=== PATIENT | male | born 1980 | race Caucasian/White ===

== ENCOUNTER 2017-04-04 09:25 | Day surgery (SDC) | payer OTHER ==
[~2017-04-04 09:25] MED LIST: Lactated Ringers 1,000 ML IV SCH; Sodium Chloride 0.9% 10 ML Syringe FLUSH PRN
[2017-04-04] MEDS ORDERED: Midazolam 1 MG/ML 2 ML SDV ONE ×2 (10:38→10:41)
[2017-04-04] MEDS ORDERED: fentaNYL 100 MCG/2 ML SDV ONE ×2 (10:38→10:41)
[2017-04-04] MEDS ORDERED: Propofol 200 MG/20 ML SDV ONE ×2 (10:38→10:41)
[2017-04-04] MEDS ORDERED: Lidocaine 2% 5 ML SDV ONE (10:41)
--- NOTE | 2017-04-04 11:11 | PCM.HPR ---
H & P Addendum review - H & P Addendum Review Date of Original H & P: 04/02/17 Date Reviewed: 04/04/17 Time Reviewed: 10:15 Patient was Examined: No Changes
--- NOTE | 2017-04-04 11:13 | PCM.OPNOTE ---
- General Post-Op/Procedure Note Date of Surgery/Procedure: 04/04/17 Operative Procedure(s): EGD with Bx. Coloscopy with polypectomy Findings: Loose LES Sig polyp Pre Op Diagnosis: GERD. Heme pos stool Post-Op Diagnosis: Same Anesthesia Technique: RUSSELL Primary Surgeon: Dean Thornton Anesthesia Provider: Josee Hancock Complications: None Condition: Good
--- NOTE | 2017-04-05 07:49 | OR ---
Date of Procedure: 04/04/2017 PREOPERATIVE DIAGNOSES: 1. Gastroesophageal reflux disease. 2. Heme-positive stool. POSTOPERATIVE DIAGNOSES: 1. Normal EGD with loose lower esophageal sphincter. 2. Sigmoid colon polyp. PROCEDURES: 1. EGD with biopsy 2. Colonoscopy with polypectomy. ANESTHESIA: IV sedation. PROCEDURE IN DETAIL: Patient was brought to the procedure room where IV sedation was administered. Oral bite block was placed and the upper endoscope advanced into the esophagus under direct vision without difficulty. Vocal cords were viewed and were normal. The scope was advanced to the 3rd portion of the duodenum. Duodenum and pylorus were normal. Antrum and body of the stomach were normal. Retroflexion reveals a normal-appearing fundus. Lower esophageal sphincter is loose and I can visualize into the distal esophagus for several cm. The squamocolumnar junction is ill-defined. I suspect there is chronic esophagitis, although I do not see any acute esophagitis, erosions, ulcerations, or other abnormalities. I did take up 4 random biopsies from the distal esophagus for pathology review. Air was removed from the stomach and the scope withdrawn through the remaining esophagus which appears normal. Patient tolerated this portion of the procedure well. Next, colonoscopy was performed. After digital rectal exam was done which was normal, colonoscope was inserted and advanced to the level of the cecum without difficulty. Cecal position was confirmed by identifying the appendiceal lumen and ileocecal valve. I was unable to visualize over a portion of the ileocecal fold. Upon withdrawing the scope, the ascending, transverse, and descending colon were normal in appearance. There was a 6 mm pedunculated polyp in the distal sigmoid colon at 17 cm from the anal verge that was removed with a cautery snare and retrieved in the polyp trap. Rectum was normal and retroflexion was normal. Air was removed and the scope withdrawn. Patient tolerated the procedure well and returned to recovery in stable condition. I will have the patient follow up with Dirk Lindsay in one week for review of pathology report. If the polyp is adenomatous, he should consider repeat colonoscopy in 5 years. MORENA ARIAS MD /[id number]
== END 2017-04-04 12:45 | disposition home or self-care (01) ==
LOC: LL.SDS 09:25
PROVIDERS: ATTEND Surgery
DX: D12.5 Benign neoplasm of sigmoid colon (principal); K20.9 Esophagitis, unspecified; Z79.899 Other long term (current) drug therapy
CPT/HCPCS: 00810; 43239; 45385; 97110; J2250; J2704; J3010; J7120

== ENCOUNTER 2022-12-26 12:14 | Emergency (ER) | payer OTHER ==
[2022-12-26] MEDS ORDERED: Potassium Chloride 20 MEQ Tab.ER PO ONE ×4 (12:49→20:06)
[2022-12-26] MEDS ORDERED: Ondansetron 4 MG/2 ML SDV IVPUSH ONE ×2 (12:50→20:14)
[2022-12-26] MEDS ORDERED: Iopamidol 612 MG/ML 100 ML Bottle IVPUSH STA (12:54)
[2022-12-26] MEDS ORDERED: Sodium Chloride 0.9% 1,000 ML IV SCH (13:00)
[2022-12-26 17:23] LABS: APPEARANCE,URINE CLOUDY; BILIRUBIN,URINE SMALL (NEGATIVE); COLOR,URINE YELLOW; GLUCOSE,URINE NEGATIVE (NEGATIVE); KETONES,URINE 40 mg/dL (NEGATIVE); LEUKOCYTE ESTERASE,URINE NEGATIVE (NEGATIVE); NITRITE,URINE NEGATIVE (NEGATIVE); OCCULT BLOOD,URINE TRACE-INTACT (NEGATIVE); PROTEIN,URINE TRACE mg/dL (NEGATIVE); UROBILINOGEN,URINE 0.2 E.U./dL (0.2-1.0)
[2022-12-26 17:31] LABS: AMORPHOUS SEDIMENT,URINE MANY /HPF (0/HPF); BACTERIA,URINE RARE /HPF (NONE TO FEW); EPITHELIAL CELLS,URINE NOT SEEN /LPF; RBC,URINE 0-5 /HPF; WBC,URINE 0-5 /HPF
[2022-12-26 19:31] LABS: CALCIUM 9.4 mg/dL (8.5-10.1); CARBON DIOXIDE,CO2 25.7 mmol/L (21.0-32.0); CREATININE 0.89 mg/dL (0.51-1.17); EST CRCL DRUG DOSING (CG) 98.57 mL/min; POTASSIUM,K 3.2 mmol/L (3.5-5.1)
[2022-12-26 19:42] LABS: ANION GAP 14.5 meq/L (7-15)
[2022-12-26] MEDS ORDERED: Take Home: Ondansetron 4 MG Tab.DIS, 5 Tab Pack PO ONE (20:13)
[2022-12-26] MEDS ORDERED: Take Home: Potassium Chloride 10 MEQ Tab, 10 Tab Pack PO ONE (20:13)
[2022-12-26] MEDS ORDERED: Loperamide 2 MG Tab PO ONE (20:20)
[2022-12-26] MEDS ORDERED: Pantoprazole 40 MG Vial IVPUSH ONE (20:26)
== END 2022-12-26 20:50 | disposition home or self-care (01) ==
LOC: LL.ED 12:14
DX: K52.9 Noninfective gastroenteritis and colitis, unspecified (principal); E87.6 Hypokalemia; K21.9 Gastro-esophageal reflux disease without esophagitis; Z79.899 Other long term (current) drug therapy; Z87.891 Personal history of nicotine dependence
CPT/HCPCS: 36415; 74177; 80048; 81001; 83605; 96361; 96374; 99284-25; A9270-GY; J2405; J7030; Q0162; Q9967